=== PATIENT | female | born 1940 | race Caucasian/White ===

== ENCOUNTER 2018-06-21 13:19 | Emergency (ER) | payer MEDICARE ==
[~2018-06-21] VITALS: Ht 162.6 cm; Wt 59.0 kg
[2018-06-21] MEDS ORDERED: LEVO75TA6 (13:37)
[2018-06-21] MEDS ORDERED: FAMO40TA6 (13:37)
--- NOTE | 2018-06-21 14:35 | Diagnostic Imaging Report ---
INDICATION: Fall with left elbow pain. TIME OF EXAM: 2:26 PM TECHNIQUE: 3 views of the left elbow were obtained. FINDINGS: Alignment is normal. The anterior fat pad is prominent on the lateral view. This does raise the question of an occult fracture. Dedicated radial head views would be useful for further evaluation. No definite fracture is seen. IMPRESSION: There is a prominent anterior fat pad suggestive of elbow joint effusion. This can be seen with occult fracture. Dedicated radial head views would be useful for further evaluation. The patient returned and radial head views were obtained. Radiocapitellar alignment is normal. Radial head and neck appear to be intact. No definite fracture is identified. IMPRESSION: No definite fracture is identified although the anterior fat pad remains prominent suggestive of an elbow joint effusion. Again, occult fracture cannot be entirely excluded. If symptoms persist, consideration could be given to performance of a CT through the left elbow. Dictated by: Dictated on workstation # [id number]
--- NOTE | 2018-06-21 15:14 | Diagnostic Imaging Report ---
PROCEDURE: CT head and CT cervical spine without contrast. TECHNIQUE: Multiple contiguous axial images were obtained through the brain and cervical spine without the use of intravenous contrast. Sagittal and coronal reformations through the cervical spine were then performed. INDICATION: Follow up head and neck pain. COMPARISON: No prior studies are available for comparison. CT HEAD: Ventricles and sulci are within normal limits. No sulcal effacement, midline shift or hemorrhage is detected. Cisterns are patent. Visualized paranasal sinuses are clear. IMPRESSION: No acute intracranial process is detected. CT CERVICAL SPINE: Curvature and alignment of the cervical spine is normal. There is multilevel degenerative disc and facet disease with variable disc space narrowing and marginal spurring. Prevertebral tissues are normal. No fractures are seen. The odontoid appears intact. IMPRESSION: Cervical spondylosis. No acute bony abnormality is detected. Dictated by: Dictated on workstation # [id number]
--- NOTE | 2018-06-21 16:36 | NUR ---
PONCHO IN TALKING TO PT AT THIS TIME.
--- NOTE | 2018-06-21 16:39 | ED Trauma-Multisystem ---
General Chief Complaint: Trauma-Non Activation Stated Complaint: FALL; HEAD & LT ELBOW INJURY Nursing Triage Note: ARRIVED VIA AMB TO TRIAGE. STATES SHE FELL AT [facility]X 1130 HITTING THE BACK OF HER HEAD AND LEFT ELBOW. DENIES LOC OR NECK PAIN. STATES SHE LAID DOWN THEN FELT LIGHT HEADED. Source of Information: Patient Exam Limitations: No Limitations History of Present Illness Date Seen by Provider: Jun 21, 2018 Time Seen by Provider: 14:00 Allergies and Home Medications Allergies Coded Allergies: No Known Drug Allergies (Unverified , 06/21/18) Past Bunrunm-Mylduu-Fnhoay Hx Patient Social History Alcohol Use: Denies Use Recreational Drug Use: No Smoking Status: Never a Smoker Recent Foreign Travel: No Contact w/Someone Who Travel: No Recent Infectious Disease Expo: No Recent Hopitalizations: No Past Medical History Surgeries: Yes 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, Orthopedic Respiratory: No Cardiac: No Neurological: No Genitourinary: No Gastrointestinal: No Musculoskeletal: No Endocrine: Yes (THYROID ISSUES) HEENT: No Cancer: Yes (LYMPHOMA) Integumentary: No Physical Exam Vital Signs Vital Signs - First Documented 06/21/18 13:31 Temp 96.3 Pulse 77 Resp 16 B/P (MAP) 149/78 (101) Pulse Ox 96 O2 Delivery Room Air Height, Weight, BMI Height: 5'4.00" Weight: 130lbs. oz. 58.337077fp; BMI Method:Stated Progress/Results/Core Measures Results/Orders My Orders Orders - PONCHO CABELLO Elbow, Left, 3 Views (06/21/18 14:13) Ct Head/Cervical Spine Wo (06/21/18 14:13) Vital Signs/I&O 06/21/18 13:31 Temp 96.3 Pulse 77 Resp 16 B/P (MAP) 149/78 (101) Pulse Ox 96 O2 Delivery Room Air Blood Pressure Mean: 101 Departure Impression Primary Impression: Fall due to ice or snow Additional Impressions: Contusion Minor head injury Disposition: 01 HOME, SELF-CARE Condition: Stable/Unchanged Departure-Patient Inst. Decision time for Depature: 16:38 Referrals: KARLA MICHELLE MD (PCP/Family) Primary Care Physician Patient Instructions: Contusion (DC) Add. Discharge Instructions: You may use ibuprofen and Tylenol as directed by the bottle for pain relief. Ice to the sore areas at 20 minute intervals. Follow-up with your primary care provider as needed. If your elbow should continue to give you trouble and be painful follow-up with an orthopedic surgeon or your primary care provider for further imaging like we discussed. Return back to the emergency room for worsening symptoms or concerns as needed. All discharge instructions reviewed with patient and/or family. Voiced understanding. PONCHO CABELLO Jun 21, 2018 16:39
[2018-06-21 16:47] VITALS: BP 149/78
== END 2018-06-21 16:47 | disposition home or self-care (01) ==
LOC: EDUNIT# 13:19 → ER 13:21
DX: S09.90XA Unspecified injury of head, initial encounter (principal); S00.83XA Contusion of other part of head, initial encounter; Z90.710 Acquired absence of both cervix and uterus; Z98.890 Other specified postprocedural states; Z85.72 Personal history of non-Hodgkin lymphomas; W00.9XXA Unspecified fall due to ice and snow, initial encounter
CPT/HCPCS: 70450; 72125; 73080

== ENCOUNTER → 2018-07-17 | Outpatient (CLI) | payer MEDICARE ==
[~2018-07-17] MED LIST: FAMO40TA6; LEVO75TA6
--- NOTE | 2018-07-17 12:43 | Diagnostic Imaging Report ---
INDICATION: Fall. Low back pain. COMPARISON: 07/20/2009. FINDINGS: Frontal and lateral radiographic views of lumbar spine were obtained and again demonstrate mild dextroscoliotic deformity epicentered at the L2 level. AP static alignment is maintained. There is no significant anterolisthesis or retrolisthesis. There is no evidence of jumped facets. Vertebral body heights appear maintained. There is no evidence of acute fracture. Mild multilevel degenerative changes are noted. Surrounding soft tissue structures are within normal limits. IMPRESSION: 1. No acute fracture or dislocation of the lumbar spine. 2. Redemonstration of mild dextroscoliotic deformity with multilevel degenerative changes. Dictated by: Dictated on workstation # [id number]
--- NOTE | 2018-07-17 13:29 | Diagnostic Imaging Report ---
INDICATION: Recent fall. Pelvic pain. COMPARISON: None. FINDINGS: Three radiographic views of the sacroiliac joints were obtained. The SI joints are symmetric. There is no conspicuous deformity of the superior cortex of the sacral ala. No other acute appearing osseous abnormality is identified. Degenerative changes in the lower lumbar spine are noted. No unexpected radiopaque foreign bodies are seen. IMPRESSION: Unremarkable radiographic exam of the bilateral SI joints. Dictated by: Dictated on workstation # [id number]
== END ==
LOC: RAD 10:13
PROVIDERS: ATTEND Family Medicine
DX: M47.816 Spondylosis without myelopathy or radiculopathy, lumbar region (principal); M41.86 Other forms of scoliosis, lumbar region; M53.3 Sacrococcygeal disorders, not elsewhere classified; R10.2 Pelvic and perineal pain; W19.XXXA Unspecified fall, initial encounter
CPT/HCPCS: 72100; 72202

== ENCOUNTER 2018-09-16 13:21 | Outpatient (RCR) | payer MEDICARE | END 2018-09-24 09:50 | disposition home or self-care (01) | PROVIDERS: ATTEND Family Medicine | DX: M51.36 Other intervertebral disc degeneration, lumbar region (principal) ==

== ENCOUNTER 2018-10-05 09:30 | Emergency (ER) | payer MEDICARE | END 2018-10-05 10:50 | disposition home or self-care (01) | LOC: ER 09:30 ==

== ENCOUNTER 2020-11-04 08:13 | Outpatient (CLI) | payer MEDICARE ==
[~2020-11-04] VITALS: Ht 162.6 cm; Wt 54.5 kg
[2020-11-04] MEDS ORDERED: CALC600T91 PO (08:34)
== END 2020-11-04 13:42 | disposition home or self-care (01) ==
LOC: PREOP 08:13
PROVIDERS: ATTEND Surgery
DX: Z01.818 Encounter for other preprocedural examination (principal)

== ENCOUNTER 2020-11-09 13:00 | Day surgery (SDC) | payer MEDICARE ==
[~2020-11-09] VITALS: Ht 163 cm; Wt 55.0 kg
[~2020-11-09 13:00] MED LIST changes: +CALC600T91 PO
[2020-11-09] MEDS ORDERED: LACTATED RINGERS 1,000 ML IV STA (13:02)
[2020-11-09] MEDS ORDERED: LACTATED RINGERS 1,000 ML IV ONE (13:04)
[2020-11-09 13:20] VITALS: BP 140/75
[2020-11-09] MEDS ORDERED: PROPOFOL INJECTION 50 ML IV ONE (14:30)
--- NOTE | 2020-11-09 14:32 | Progress Note-Pre Operative ---
Pre-Operative Progress Note H&P Reviewed The H&P was reviewed, patient examined and no changes noted. Date Seen by Provider: Nov 09, 2020 Time Seen by Provider: 14:31 Date H&P Reviewed: Nov 09, 2020 Time H&P Reviewed: 14:31 Pre-Operative Diagnosis: chronic diarrhea, occult + stool ERIC PENALOZA DO Nov 09, 2020 14:32
[2020-11-09 15:45] VITALS: BP 145/69
[2020-11-09 15:50] VITALS: BP_SYST 144; BP_SYST 155; BP_DIAS 69; BP_DIAS 74
--- NOTE | 2020-11-09 15:57 | Anesthesia-General Post-Op ---
MAC Patient Condition Mental Status/LOC: Same as Preop Cardiovascular: Satisfactory Nausea/Vomiting: Absent Respiratory: Satisfactory Pain: Controlled Complications: Absent Post Op Complications Complications None Follow Up Care/Instructions Patient Instructions None needed. Anesthesiology Discharge Order Discharge Order Patient is doing well, no complaints, stable vital signs, no apparent adverse anesthesia problems. No complications reported per nursing. SATISH CONNOR CRNA Nov 09, 2020 15:57
[2020-11-09 16:15] VITALS: BP 128/75
[2020-11-09 16:17] VITALS: BP 128/75
--- NOTE | 2020-11-09 18:29 | OPERATIVE REPORT ---
DATE OF SERVICE: 11/09/2020 PREOPERATIVE DIAGNOSES: Chronic diarrhea, occult positive stool. POSTOPERATIVE DIAGNOSES: Diverticulosis, cecal polyp and ascending colon polyp. PROCEDURE: Colonoscopy with hot biopsy polypectomy x2 and random cold biopsies. SURGEON: Eric Angeles DO ANESTHESIA: Per MDA. ESTIMATED BLOOD LOSS: None. COMPLICATIONS: None. INDICATIONS: The patient is a 80-year-old female with chronic diarrhea and occult positive stools. She understands risks and benefits of procedure and wished to proceed with procedure. Consent was signed in the chart. DESCRIPTION OF PROCEDURE: The patient was taken to the endoscopy suite, placed in left lateral recumbent position. Timeout was performed. Digital rectal exam was performed. There were no palpable polyps, masses or ulcerations. Scope was inserted in the rectum, advanced all the way to cecum with minimal difficulty. Polyp in the cecum was present. Hot biopsy polypectomy was performed. Scope was then slowly retracted back in the ascending colon, a small polyp was present, which hot biopsy polypectomy was performed. Scope was then continuously retracted back. No other polyps, masses or ulcerations within the remainder of the ascending, transverse, descending and sigmoid colon. As scope was being retracted, a few random cold biopsies were obtained. Once in the rectum, scope was retroflexed noting no other pathology. Scope was returned to its normal position, slowly withdrawn until completely removed. The patient tolerated procedure well without any complications. She was taken to recovery room in stable condition. RECOMMENDATIONS: The patient will follow up in the office in a couple of weeks to discuss pathology and further recommendations. Job ID: [id number] DocumentID: [id number] Dictated Date: 11/09/2020 16:46:19 Manager Infrastructure Date: 11/09/2020 18:28:32 Dictated By: ERIC ANGELES DO
== END 2020-11-09 16:22 | disposition home or self-care (01) ==
LOC: ENDO 13:00
PROVIDERS: ATTEND Surgery
DX: D12.2 Benign neoplasm of ascending colon (principal); K57.30 Diverticulosis of large intestine without perforation or abscess without bleeding; K21.9 Gastro-esophageal reflux disease without esophagitis; Z79.2 Long term (current) use of antibiotics; E03.9 Hypothyroidism, unspecified; Z80.1 Family history of malignant neoplasm of trachea, bronchus and lung; Z79.899 Other long term (current) drug therapy; Z79.890 Hormone replacement therapy; Z85.72 Personal history of non-Hodgkin lymphomas

== ENCOUNTER → 2020-12-31 | Outpatient (CLI) | payer MEDICARE ==
--- NOTE | 2020-12-31 09:14 | Diagnostic Imaging Report ---
PROCEDURE: US Gallbladder. TECHNIQUE: Multiple real-time grayscale images were obtained over the right upper quadrant in various projections. INDICATION: Right upper quadrant abdominal pain. Diarrhea. COMPARISON: None FINDINGS: Liver is normal in size, shape, and echogenicity. There is no focal mass. There is no sonographic evidence of intra or extrahepatic biliary ductal dilatation. Common bile duct is within normal limits 3 mm in diameter. Gallbladder is visualized. There is no cholelithiasis, gallbladder wall thickening, nor pericholecystic free fluid. Visualized portions of the head and proximal body of pancreas are unremarkable. Distal body and tail are not well visualized secondary to overlying bowel gas. Visualized portions of abdominal aorta and IVC are unremarkable as well. There is no ascites. Right kidney has normal appearance and measures 9.8 cm in length. There is no evidence of hydronephrosis, calculus, nor mass. IMPRESSION: 1. Unremarkable right upper quadrant abdominal sonogram. No sonographic evidence of acute cholecystitis. Dictated by: Dictated on workstation # [id number]
== END ==
LOC: RAD 07:00
PROVIDERS: ATTEND Family Medicine
DX: R10.11 Right upper quadrant pain (principal); R19.7 Diarrhea, unspecified
CPT/HCPCS: 76705

== ENCOUNTER 2021-01-03 12:00 | Outpatient (RCR) | payer MEDICARE ==
[2021-02-14] MEDS ORDERED: LEVO75CA5 PO (10:20)
[2021-02-14] MEDS ORDERED: CHOL4PAC2 PO (10:20)
[2021-02-14] MEDS ORDERED: FAMO40TA6 PO ×2 (10:20→10:21)
[2021-02-14] MEDS ORDERED: TR1C15 TP (10:21)
[2021-02-14] MEDS ORDERED: ASPI-999 PO (11:12)
[2021-02-14] MEDS ORDERED: MULT-1136 PO (11:12)
[2021-02-17] MEDS ORDERED: LOPE-175 PO (08:33)
[2021-02-17] MEDS ORDERED: DOCU-143 PO (10:07)
[2021-02-17] MEDS ORDERED: ACHD5005 PO (10:07)
== END 2021-03-30 | disposition home or self-care (01) ==
LOC: LAB 12:00
PROVIDERS: ATTEND Surgery
DX: R19.7 Diarrhea, unspecified (principal)
CPT/HCPCS: 87015; 87045; 87046; 87324; 87328; 87329; 87449; 87899

== ENCOUNTER → 2021-01-27 | Outpatient (CLI) | payer MEDICARE ==
[~2021-01-27] MED LIST changes: +CATHETER FLUSH 10 ML SYR IV PRN
--- NOTE | 2021-02-01 08:12 | Diagnostic Imaging Report ---
Reason for exam: Right upper quadrant abdominal pain. Comparison: 12/31/2020. Procedure: The patient was administered 4.25 millicuries of technetium 99m mebrofenin . 8 ounces of Ensure was ingested at 45 minutes. A nuclear medicine hepatobiliary scan with ejection fraction was performed. Findings: There is prompt uptake and excretion of radiotracer by the liver. Activity is visible in the gallbladder by 20 minutes and the small bowel by 65 minutes. Ejection fraction of the gallbladder is calculated at 14.1% (normal >35%). The gallbladder visibly empties on the scans following ingestion of Ensure. Impression: 1. Findings suggestive of gallbladder dyskinesia with lower than expected ejection fraction calculated at 14.1%. Dictated by: Dictated on workstation # [id number]
== END ==
LOC: CARD 10:00
PROVIDERS: ATTEND Surgery
DX: R10.13 Epigastric pain (principal)
CPT/HCPCS: 78227; A9537

== ENCOUNTER 2021-02-14 05:36 | Outpatient (CLI) | payer MEDICARE ==
[~2021-02-14] VITALS: Ht 162.6 cm; Wt 49.0 kg
[~2021-02-14 05:36] MED LIST changes: -CATHETER FLUSH 10 ML SYR IV PRN
[2021-02-14] MEDS ORDERED: FAMO40TA6 PO ×2 (10:20→10:21)
[2021-02-14] MEDS ORDERED: CHOL4PAC2 PO (10:20)
[2021-02-14] MEDS ORDERED: LEVO75CA5 PO (10:20)
[2021-02-14] MEDS ORDERED: TR1C15 TP (10:21)
[2021-02-14] MEDS ORDERED: MULT-1136 PO (11:12)
[2021-02-14] MEDS ORDERED: ASPI-999 PO (11:12)
== END 2021-02-14 11:30 | disposition home or self-care (01) ==
LOC: PREOP 05:36
PROVIDERS: ATTEND Surgery
DX: Z01.818 Encounter for other preprocedural examination (principal)

== ENCOUNTER 2021-02-17 08:08 | Day surgery (SDC) | payer MEDICARE ==
[~2021-02-17] VITALS: Ht 162.6 cm; Wt 49.0 kg
[2021-02-17] VITALS (11 sets, daily range): BP systolic 128–149; BP diastolic 60–82
[~2021-02-17 08:08] MED LIST changes: +ASPI-999 PO; +CHOL4PAC2 PO; +FAMO40TA6 PO; +LEVO75CA5 PO; +MULT-1136 PO; +TR1C15 TP
--- OUTSIDE RECORDS SUMMARY | 2021-02-17 08:11 | XMS REPORT | CCD ---
Author Author Roshni Mullen D.O. Organization [facility] Address [address] [place] [address] Phone Care Team Providers Care Brass Polisher Name Role Phone PP Unavailable CCM Unavailable Summary Purpose Interface Exchange Insurance Providers Payer name Policy type / Coverage type Covered alliance party ID Effective Begin Date Effective End Date WPS MEDICARE PART B [facility] Cross/Blue Shield [id number] 2020 [id number] Unknown BLUE MEDICARE Blue Cross/Blue Shield [id number] Unkn own Family history Mother Diagnosis Age At Onset Heart disease Unknown Cerebrovascular disease Unknown Son Diagnosis Age At Onset Seizures Unknown Lung Cancer Unknown Brother Diagnosis Age At Onset Heart disease Unknown Father Diagnosis Age At Onset Lung Cancer Unknown Social History Social History Element Codes Description Effective Dates Marital status Unknown 11/25/2020 Number of children Unknown 5 11/25/2020 Employment Unknown Retired 11/25/[address]: 103438751 Has never smoked or chewed tobacco 11/25/[address]: 982739 Currently drinks alcohol 11/25 Has the patient ever used illegal drugs? 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 ICD-9: 202.80 11/25/2020 Active RUQ pain ICD-10: R10.11 ICD-9: 789.01 12/23/2020 Active Unintended weight loss ICD-10: R63.4 ICD-9: 783.21 12/23/2020 Active Acute on chronic anemia ICD-10: D64.9 ICD-9: 285.9 12/01/2020 Active Superficial thrombophlebitis of left leg ICD-10: I80.0 2 ICD-9: 451.0 11/25/2020 Active Hypothyroidism ICD-10: E03.9 ICD-9: 244.9 11/25/2020 Active Medications Medication Codes Instructions Start Date Stop Date Status Fill Instructions multivitamin tablet RxNorm: Take 1 Tablet(s) Oral QD 11/25/2020 No Stop Date Active levothyroxine 75 mcg tablet RxNorm: 449784 Take 1 Tablet(s) Oral QD 11/25/2020 02/22/2021 Active famotidine 40 mg tablet RxNorm: 748380 Take 1 Tablet(s) Oral QD No Stop Date Active Medication Administered No Medication Administered data Immunizations No Immunization data Results No Results data Procedures No Procedures data Vital Signs Date Vital 12/23/2020 Blood Pressure 1: 122/63 Code: 8480-6 Heart Rate 1: 73 bpm Respiratory Rate: 15 bpm SpO2: 97% Temperature: 36.2 (C) / 97.1 (F) We ight: 108 lbs Code: 51800-3 12/01/2020 Blood Pressure 1: 114/70 Code: 8480-6 Heart Rate 1: 82 bpm Respiratory Rate: 20 bpm SpO2: 98% Temperature: 36.8 (C) / 98.3 (F) 11/25/2020 Blood Pressure 1: 132/70 Code: 8480-6 BMI: 20.5 Code: 91013-0 Heart Rate 1: 72 bpm Height: 5'2" Code: 8302-2 Respiratory Rate: 20 bpm SpO2: 98% Temperature: 36.6 (C) / 97.9 (F) Weight: 114 lbs Code: 83027-8 Functional Status No Functional Status data Reason For Visit Reason For Visit Effective Dates Notes diarrhea 12/23/2020 follow up 12/01/2020 ~generic 11/25/2020 New Patient, history of lymphoma---negative CT scans recently. Currently seeing Dr Meyers at [facility] Encounters Encounter Performer Location Codes Date () OFFICE/OUTPATIENT VISIT EST Diagnosis: Diarrhea[ICD10: R19.7] Diagnosis: Lymphoma in remission[ICD10: C85.90] Diagnosis: RUQ pain[ICD10: R10.11] Diagnosis: Unintended weight loss[ICD10: R63.4] Dodie Aguilar DOMINIC MULLEN [employer] CPT-4: 04882 12/23/2020 ([id number]) OFFICE/OUTPATIENT VISIT EST Diagnosis: Superficial thrombophlebitis of left leg[ICD10: I80.02] Diagnosis: Diarrhea[ICD10: R19.7] Diagnosis: Acute on chronic anemia[ICD10: D64.9] Bina [employer] CPT-4: 69207 12/01/2020 ([id number]) OFFICE/OUTPATIENT VISIT NEW Diagnosis: Lymphoma in remission[ICD10: C85.90] Diagnosis: Hypothyroidism[ICD10: E03.9] Diagnosis: Diarrhea[ICD10: R19.7] Diagnosis: Superficial thrombophlebitis of left leg[ICD10: I80.02] [facility] [employer] CPT-4: 13257 11/25/2020 Plan of Care Planned Activity Notes Codes Status Date Visit Diagnosis Plan: Diarrhea Discussion: Has had rec ent lab work- will add on CRP and celiac panel. Will get US of liver/gallbladder d/t diarrhea and RUQ pain. Has f/u with Dr. Angeles next week, but requests referral to GI. Will send referral to Dr. Zafar. ICD-9 : 787.91 ICD-10 : R19.7 12/23/2020 App[facility]ment: Dodie Aguilar [facility] [phone] [id number] [facility] 12/23/2020 Patient Education: Patient Medication Summary Completed 12/23/2020 Visit Diagnosis Plan: Acute on chronic anemia Discussi on: Has meeting with oncology next week ICD-9 : 285.9 ICD-10 : D64.9 12/01/2020 Visit Diagnosis Plan: Diarrhea Discussion: Sees Dr. Velazquez today to go over colonoscopy results ICD-9 : 787.91 ICD-10 : R19.7 12/01/2020 Visit Diagnosis Plan: Superficial thrombophlebitis of left leg Discussion: Low dose xarelto for another week then go to aspirin 81mg daily and use compression socks ICD-9 : 451.0 ICD-10 : I80.02 12/01/2020 [facility]ment: Bina [facility]ullen [facility] [phone] [facility] [facility] FOLLOW UP 12/01/2020 Visit Diagnosis Plan: Diarrhea Discussion: Sees Dr. Velazquez next week to go over her colonoscopy results Add metamucil has helped ICD-9 : 787.91 ICD-10 : R19.7 11/25/2020 Visit Diagnosis Plan: Superficial thrombophlebitis of left leg Discussion: Xarelto 2.5mg po q AM Recheck 1 week Notify if worsening and will get doppler Discussed wearing compression socks for long car trips in future ICD-9 : 451.0 ICD-10 : I80.02 11/25/2020 Visit Diagnosis Plan: Lymphoma in remission Discussion : Following with oncology in [place] ICD-9 : 202.80 ICD-10 : C85.90 11/25/2020 Visit Diagnosis Plan: Hypothyroidism Discussion: Updat e thyroid lab with next lab draw for oncology ICD-9 : 244.9 ICD-10 : E03.9 11/25/2020 [facility]ment: Bina Mullen [facility] [phone] [facility] [facility] NEW PATIENT 11/25/2020 Instructions No Instructions Medical Equipment No Medical Equipment data Health Concerns Section Health Concerns data not found Goals Section Goals data not found Interventions Section Interventions data not found Health Status Evaluations/Outcomes Section Health Status Evaluations/Outcomes data not found Advance Directives No Advance Directive data
--- OUTSIDE RECORDS SUMMARY | 2021-02-17 08:11 | XMS REPORT | CCD ---
Author Author Roshni Mullen D.O. Organization [facility] Address [address] [place] [address] Phone Care Team Providers Care American History Professor Name Role Phone PP Unavailable CCM Unavailable Summary Purpose Interface Exchange Insurance Providers Payer name Policy type / Coverage type Covered alliance party ID Effective Begin Date Effective End Date WPS MEDICARE PART B [facility] Cross/Blue Shield [id number] 2020 [id number] Unknown BLUE MEDICARE Blue Cross/Blue Shield [id number] Unkn own Family history Mother Diagnosis Age [...] Unknown Retired 11/25/[address]: 102010982 Has never smoked or chewed tobacco 11/25/[address]: 148049 Currently drinks alcohol 11/25 Has the patient [...] Date Active levothyroxine 75 mcg tablet RxNorm: 692200 Take 1 Tablet(s) Oral QD 11/25/2020 02/22/2021 Active famotidine 40 mg tablet RxNorm: 067116 Take 1 Tablet(s) Oral QD No Stop Date Active Medication Administered No Medication Administered data Immunizations No Immunization data Results No Results data Procedures No Procedures data Vital Signs Date Vital 12/23/2020 Blood Pressure 1: 122/63 Code: 8480-6 Heart Rate 1: 73 bpm Respiratory Rate: 15 bpm SpO2: 97% Temperature: 36.2 (C) / 97.1 (F) We ight: 108 lbs Code: 97311-3 12/01/2020 Blood Pressure 1: 114/70 Code: 8480-6 Heart Rate 1: 82 bpm Respiratory Rate: 20 bpm SpO2: 98% Temperature: 36.8 (C) / 98.3 (F) 11/25/2020 Blood Pressure 1: 132/70 Code: 8480-6 BMI: 20.5 Code: 08431-4 Heart Rate 1: 72 bpm Height: 5'2" Code: 8302-2 Respiratory Rate: 20 bpm SpO2: 98% Temperature: 36.6 (C) / 97.9 (F) Weight: 114 lbs Code: 28058-1 Functional Status No Functional Status data Reason For Visit Reason For Visit Effective Dates Notes diarrhea 12/23/2020 follow up 12/01/2020 ~generic 11/25/2020 New Patient, history of lymphoma---negative CT scans recently. Currently seeing Dr Meyers at [facility] Encounters Encounter Performer Location Codes Date () OFFICE/OUTPATIENT VISIT EST Diagnosis: Diarrhea[ICD10: R19.7] Diagnosis: Lymphoma in remission[ICD10: C85.90] Diagnosis: RUQ pain[ICD10: R10.11] Diagnosis: Unintended weight loss[ICD10: R63.4] Dodie Aguilar DOMINIC MULLEN [employer] CPT-4: 13196 12/23/2020 ([id number]) OFFICE/OUTPATIENT VISIT EST Diagnosis: Superficial thrombophlebitis of left leg[ICD10: I80.02] Diagnosis: Diarrhea[ICD10: R19.7] Diagnosis: Acute on chronic anemia[ICD10: D64.9] Bina [employer] CPT-4: 36896 12/01/2020 ([id number]) OFFICE/OUTPATIENT VISIT NEW Diagnosis: Lymphoma in remission[ICD10: C85.90] Diagnosis: Hypothyroidism[ICD10: E03.9] Diagnosis: Diarrhea[ICD10: R19.7] Diagnosis: Superficial thrombophlebitis of left leg[ICD10: I80.02] Bina [employer] CPT-4: 56234 11/25/2020 Plan of Care Planned Activity Notes [...] 12/23/2020 Appointment: Dodie Aguilar [facility]Ptel: [phone] [id number] [facility] 12/23/2020 Patient Education: Patient Medication [...] I80.02 12/01/2020 [facility]ointment: Bina Mullen [facility] [phone] [facility] [facility] FOLLOW UP 12/01/2020 Visit Diagnosis [...] remission Discussion : Following with oncology in [place] ICD-9 : 202.80 ICD-10 : C85.90 11/25/2020 Visit Diagnosis Plan: Hypothyroidism Discussion: Updat e thyroid lab with next lab draw for oncology ICD-9 : 244.9 ICD-10 : E03.9 11/25/2020 Appointment: Bina Mullen [facility] [phone] [facility] [facility] NEW PATIENT 11/25/2020 Instructions No Instructions Medical Equipment No Medical Equipment data Health Concerns Section Health Concerns data not found Goals Section Goals data not found Interventions Section Interventions data not found Health Status Evaluations/Outcomes Section Health Status Evaluations/Outcomes data not found Advance Directives No Advance Directive data
--- OUTSIDE RECORDS SUMMARY | 2021-02-17 08:11 | XMS REPORT | CCD ---
Author Author Roshni Mullen D.O. 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 Name Role Phone PP Unavailable CCM Unavailable Summary Purpose Interface Exchange Insurance Providers Payer name Policy type / Coverage type Covered alliance party ID Effective Begin Date Effective End Date WPS MEDICARE PART B [place] Blue Cross/Blue Shield [id number] 2020 [id number] Unknown BLUE MEDICARE Blue Cross/Blue Shield [id number] Unkn own Family history Mother Diagnosis Age [...] Unknown Retired 11/25/[address]: 122383649 Has never smoked or chewed tobacco 11/25/[address]: 848892 Currently drinks alcohol 11/25 Has the patient [...] Date Active levothyroxine 75 mcg tablet RxNorm: 990787 Take 1 Tablet(s) Oral QD 11/25/2020 02/22/2021 Active famotidine 40 mg tablet RxNorm: 314450 Take 1 Tablet(s) Oral QD No Stop Date Active Medication Administered No Medication Administered data Immunizations No Immunization data Results No Results data Procedures No Procedures data Vital Signs Date Vital 12/23/2020 Blood Pressure 1: 122/63 Code: 8480-6 Heart Rate 1: 73 bpm Respiratory Rate: 15 bpm SpO2: 97% Temperature: 36.2 (C) / 97.1 (F) We ight: 108 lbs Code: 66267-6 12/01/2020 Blood Pressure 1: 114/70 Code: 8480-6 Heart Rate 1: 82 bpm Respiratory Rate: 20 bpm SpO2: 98% Temperature: 36.8 (C) / 98.3 (F) 11/25/2020 Blood Pressure 1: 132/70 Code: 8480-6 BMI: 20.5 Code: 44445-9 Heart Rate 1: 72 bpm Height: 5'2" Code: 8302-2 Respiratory Rate: 20 bpm SpO2: 98% Temperature: 36.6 (C) / 97.9 (F) Weight: 114 lbs Code: 94479-2 Functional Status No Functional Status data Reason For Visit Reason For Visit Effective Dates Notes diarrhea 12/23/2020 follow up 12/01/2020 ~generic 11/25/2020 New Patient, history of lymphoma---negative CT scans recently. Currently seeing Dr Meyers at 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] Diagnosis: RUQ pain[ICD10: R10.11] Diagnosis: Unintended weight loss[ICD10: R63.4] Dodie Aguilar DOMINIC MULLEN YaKlass CPT-4: 54027 12/23/2020 ([id number]) OFFICE/OUTPATIENT VISIT EST Diagnosis: Superficial thrombophlebitis of left leg[ICD10: I80.02] Diagnosis: Diarrhea[ICD10: R19.7] Diagnosis: Acute on chronic anemia[ICD10: D64.9] Bina MULLEN YaKlass CPT-4: 36892 12/01/2020 ([id number]) OFFICE/OUTPATIENT VISIT NEW Diagnosis: Lymphoma in remission[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 Will get US of liver/gallbladder d/t diarrhea and RUQ pain. Has f/u with Dr. Angeles next week, but requests referral to GI. Will send referral to Dr. Zafar. ICD-9 : 787.91 ICD-10 : R19.7 12/23/2020 [facility]: Dodie [facility] [phone] [facility] [facility] 12/23/2020 Patient Education: Patient Medication [...] I80.02 12/01/2020 [facility] [phone] [facility] [facility] 12/01/2020 Visit Diagnosis Plan: [...] remission Discussion : Following with oncology in [place] ICD-9 : 202.80 ICD-10 : C85.90 11/25/2020 Visit Diagnosis Plan: Hypothyroidism Discussion: Updat e thyroid lab with next lab draw for oncology ICD-9 : 244.9 ICD-10 : E03.9 11/25/2020 Appointment: [facility]ina [facility]ullen [facility] [phone] [facility] [facility] NEW PATIENT 11/25/2020 Referral: Tony Zafar WPtel: [phone] [facility] [address] [id number] US Referral Appointment Requested Instructions No Instructions Medical Equipment No Medical Equipment data Health Concerns Section Health Concerns data not found Goals Section Goals data not found Interventions Section Interventions data not found Health Status Evaluations/Outcomes Section Health Status Evaluations/Outcomes data not found Advance Directives No Advance Directive data
[2021-02-17] MEDS ORDERED: ceFAZolin INJECTION 1,000 MG in WATER (STERILE) FOR INJECTION 10 ML IV ONE (08:15)
[2021-02-17] MEDS ORDERED: LACTATED RINGERS 1,000 ML IV PRN (08:15)
[2021-02-17] MEDS ORDERED: LIDOCAINE/EPI 1%-1:100,000 (XYLOCAINE) 20ML ONE (08:24)
[2021-02-17] MEDS ORDERED: LOPE-175 PO (08:33)
[2021-02-17] MEDS ORDERED: ROCURONIUM 10 MG/ML 5 ML SYRINGE IV ONE (08:43)
[2021-02-17] MEDS ORDERED: proPOfol 200 MG/20 ML (DIPRIVAN) VIAL IV ONE (08:43)
[2021-02-17] MEDS ORDERED: fentaNYL INJ 100 MCG/2 ML AMP ONE (08:43)
[2021-02-17] MEDS ORDERED: ONDANSETRON 4 MG/2 ML (SDV) Z0FRAN ONE (08:43)
[2021-02-17] MEDS ORDERED: SEVOFLURANE (ULTANE) 15 ML INHAL SOLN ONE ×2 (08:43→09:40)
[2021-02-17] MEDS ORDERED: LIDOCAINE PF 2% 5 ML (XYLOCAINE) VIAL ONE (08:43)
--- NOTE | 2021-02-17 08:53 | Progress Note-Pre Operative ---
Pre-Operative Progress Note H&P Reviewed The H&P was reviewed, patient examined and no changes noted. Date Seen by Provider: Feb 17, 2021 Time Seen by Provider: 08:53 Date H&P Reviewed: Feb 17, 2021 Time H&P Reviewed: 08:53 Pre-Operative Diagnosis: biliary dyskinesia ERIC PENALOZA DO Feb 17, 2021 08:53
[2021-02-17] MEDS ORDERED: PHENYLEPHRINE 100 MCG/ML 10 ML (ANESTHESIA) SYR ONE (09:07)
[2021-02-17] MEDS ORDERED: GLYCOPYRROLATE 0.2 MG/ML (ROBINUL) 2 ML VIAL ONE (09:39)
[2021-02-17] MEDS ORDERED: NEOSTIGMINE 3 MG/3 ML VIAL ONE (09:39)
[2021-02-17] MEDS ORDERED: KETOROLAC 30 MG/ML VIAL ONE (09:46)
[2021-02-17] MEDS ORDERED: HYDROmorphone 2 MG/ML VIAL (DILAUDID) IV ONE (10:00)
[2021-02-17] MEDS ORDERED: ONDANSETRON 4 MG/2 ML (SDV) Z0FRAN IVP PRN (10:00)
--- NOTE | 2021-02-17 10:06 | Progress Note-Post Operative ---
Post-Operative Progess Note Surgeon (s)/[employer] Consultant (s) Surgeon ERIC PENALOZA DO [employer] Consultant: Dr. Chong to assist in retraction dissection and closure. Pre-Operative Diagnosis biliary dyskinesia Post-Operative Diagnosis biliary dyskinesia Procedure & Operative Findings Date of Procedure 02/17/21 Procedure Performed/Findings PROCEDURE: Laparoscopic cholecystectomy with intraoperative cholangiogram. COMPLICATIONS: None. PROCEDURE: The patient was taken to the operating suite and was prepped and draped in sterile fashion. A surgical pause was performed. Just inferior to the umbilicus, a 12 mm incision was made. Dissection was taken down to the fascia, which was then scored and grasped with a Erwin and the abdomen was then entered. A 0 Vicryl suture was placed in a hhfhvp-of-ejkxm fashion and a Ayon trocar was placed and secured. Pneumoperitoneum was achieved. A 5mm trochar place in the subxyphoid and 2 in the right upper quadrant. The gallbladder was then grasped and elevated. Gallbladder was distended and had multiple adhesions. Adhesions to the gallbladder were taken down with blunt and cautery dissection. The cystic duct, and cystic artery were then dissected out. Clip was placed on the distal portion of the cystic duct which was then partially transected. An arrow catheter was inserted into the duct. The cholangiogram was then performed. No filing defects and contrast made its way into the duodenum. Catheter removed. Clips were placed on proximal portion of the cystic duct and then the duct was then transected. Clips were placed along the proximal and distal portion of the cystic artery which was then transected. Hook cautery was used to dissect the gallbladder from the gallbladder fossa achieving hemostasis. The gallbladder was placed in an Endobag and removed through the 12 mm trocar site. The abdomen was then reinspected. Copious amounts of irrigation were used to irrigate the abdomen and there were no signs of active bleeding. Hemostasis had been achieved. The 12 mm fascial defect was then closed with 0 Vicryl suture that had been placed in a htaidb-ta-dxwis fashion. The abdomen was then desufflated, the trocars were removed. The abdomen was then washed and dried. The skin was then closed using 4-0 Monocryl in a subcuticular fashion. The abdomen was washed and dried and Skin Affix was place over incisions. Patient tolerated the procedure well without any complications and was taken to the recovery room in stable condition. Anesthesia Type general Estimated Blood Loss Estimated blood loss (mL): min Specimens/Packing Specimens Removed gallbladder ERIC PENALOZA DO Feb 17, 2021 10:06
[2021-02-17] MEDS ORDERED: DOCU-143 PO (10:07)
[2021-02-17] MEDS ORDERED: ACHD5005 PO (10:07)
--- NOTE | 2021-02-17 10:08 | Discharge Inst-Simple/Standard ---
Discharge Inst-Standard Discharge Medications New, Converted or Re-Newed RX: Transmitted to Pharmacy Patient Instructions/Follow Up Plan of Care/Instructions/FU: 2 weeks silvana Activity as Tolerated: No Discharge Diet: Regular Diet Other Inst to Patient Follow up Appt: Make appointment for 2 weeks. Instructions: No lifting greater than 10 pounds. No strenuous activity. May shower in 24 hours, no tub bath or soaking. Use incentive spirometer at home as directed. No Smoking Skin/Wound Care: You have special glue over incision, it will fall off on it's own. Symptoms to Report: Appetite Changes, Extremity Discoloration, Numbness/Tingling, Swelling Increased, Bleeding Excessive, Eyesight Changes, Pain Increased, Urine Color Change, Constipation(Persistent), Fever over 101 degree F, Pain/Pressure in chest, Urinating Difficulty, Cough Up/Vomit Blood, Heart Beat Irreg/Pounding, Pain/Pressure in jaw, Vaginal Bleeding Increase, Cramps in feet or legs, Lightheadedness, Pain/Pressure in shoulder, Diarrhea(Persistent), Memory Changes Suddenly, Questions/Concerns, Weight gain consecutive days, Dizziness/Fainting, Nausea/Vomiting, Shortness of Breath, Weight gain over 2 pounds. If eyes or skin turn yellow notify physician. If questions or concerns contact your physician Or seek help at emergency department. ERIC PENALOZA DO Feb 17, 2021 10:08
--- NOTE | 2021-02-17 10:11 | Diagnostic Imaging Report ---
INDICATION: Right upper quadrant abdominal pain with gallbladder dyskinesia. Undergoing cholecystectomy. FINDINGS: 2 intraoperative cholangiogram images along with a cine image are submitted. There is cannulation of the extra hepatic biliary tree. Images demonstrate contrast opacification of the biliary system. Biliary tree is not significantly dilated. There was are several small persistent filling defects in the common bile duct which are nonspecific. Fairly normal, free flow was present into the duodenum. IMPRESSION: Nondilated biliary tree. A few small filling defects are present, nonspecific. Fluoroscopic time: 8.5 seconds Dictated by: Dictated on workstation # [id number]
--- NOTE | 2021-02-17 14:46 | Anesthesia-General Post-Op ---
General Patient Condition Mental Status/LOC: Same as Preop Cardiovascular: Satisfactory Nausea/Vomiting: Absent Respiratory: Satisfactory Pain: Controlled Complications: Absent Post Op Complications Complications None Follow Up Care/Instructions Patient Instructions None needed. Anesthesia/Patient Condition Patient Condition Patient is doing well, no complaints, stable vital signs, no apparent adverse anesthesia problems. No complications reported per nursing. D/C home per [facility] Criteria: Yes VIVEK JOHNSON CRNA Feb 17, 2021 14:46
== END 2021-02-17 12:15 | disposition home or self-care (01) ==
LOC: SDC 08:08
PROVIDERS: ATTEND Surgery
DX: K81.1 Chronic cholecystitis (principal); K82.8 Other specified diseases of gallbladder; K21.9 Gastro-esophageal reflux disease without esophagitis; E07.9 Disorder of thyroid, unspecified; Z79.82 Long term (current) use of aspirin; Z79.890 Hormone replacement therapy; Z79.891 Long term (current) use of opiate analgesic
CPT/HCPCS: 76000; 87081

== ENCOUNTER → 2021-10-11 | Outpatient (RCR) | payer MEDICARE ==
[~2021-10-11] MED LIST changes: +ACHD5005 PO; +CHOL4PAC14 PO; -CHOL4PAC2 PO; +DOCU-143 PO; +LOPE-175 PO
== END | disposition home or self-care (01) ==
PROVIDERS: ATTEND Nurse Practitioner Family
DX: M54.16 Radiculopathy, lumbar region (principal)

== ENCOUNTER 2021-11-08 13:23 | Outpatient (RCR) | payer MEDICARE | END 2021-11-10 | disposition home or self-care (01) | PROVIDERS: ATTEND Nurse Practitioner Family | DX: M54.16 Radiculopathy, lumbar region (principal) ==

== ENCOUNTER 2021-11-24 11:15 | Outpatient (RCR) | payer MEDICARE ==
[~2021-11-24 11:15] MED LIST changes: -CHOL4PAC14 PO; +CHOL4POW4 PO
== END 2021-12-11 | disposition home or self-care (01) ==
PROVIDERS: ATTEND Nurse Practitioner Family
DX: M54.16 Radiculopathy, lumbar region (principal)

== ENCOUNTER 2022-07-03 04:56 | Emergency (ER) | payer MEDICARE ==
[~2022-07-03] VITALS: Ht 162.6 cm; Wt 49.0 kg
[2022-07-03] MEDS ORDERED: NS IV 500 ML 500 ML IV STA (05:25)
[2022-07-03] MEDS ORDERED: ONDANSETRON 4 MG/2 ML (SDV) Z0FRAN IVP ONE (05:30)
--- NOTE | 2022-07-03 05:31 | ED General ---
General Stated Complaint: CANCER Source of Information: Patient, Family (son) Exam Limitations: No Limitations History of Present Illness Date Seen by Provider: Jul 03, 2022 Time Seen by Provider: 05:14 Initial Comments Patient is an 81-year-old female who presents to the emergency department today with a chief complaint of severe nausea, vomiting and desiring end-of-life care. She has a history of lymphoma and has been fighting it since 2009, still taking chemotherapy last dose was about 2 weeks ago. She gets it every 2 weeks. Patient states over the course of the last several days she has decided that she wants to discontinue treatment for her lymphoma. She has stopped taking all of her prescription medications including nausea medicines and pain medicines. She states her back is her primary source of pain, she does occasionally have abdominal pain. She has had severe diarrhea in the last 24 hours as well. She is here because she states she did not want to at home with her son present. She would like hospice started. Her primary care doctor is Dr. BACK, her oncologist is Dr. Osborn. She is currently awake alert and oriented and appears to have capacity to make decisions for herself. Her son is present and and is agreeable with her decisions. Patient is desirous of a little medication for her nausea and a little IV fluid while we arrange for hospice nurse to come out and see her this afternoon. She has no preference currently for any particular hospice company. Timing/Duration: Other (2 to 3 days worsening) Severity: Severe Associated Systoms: Loss of Appetite, Malaise, Nausea/Vomiting, Weakness, Other (Low back pain) Allergies and Home Medications Allergies Coded Allergies: No Known Drug Allergies (Unverified , 06/21/18) Patient Home Medication List Home Medication List Reviewed: Yes Aspirin (Aspirin) 81 Mg Tab.chew, 81 MG PO DAILY, (Reported) Entered as Reported by: YANIQUE REECE on 02/14/21 1112 Cholestyramine (with Sugar) (Cholestyramine Packet) 4 Gm Powd.pack, 4 GM PO DAILY, (Reported) Entered as Reported by: YANIQUE REECE on 02/14/21 1020 Docusate Sodium (Colace) 100 Mg Capsule, 100 MG PO BID Prescribed by: ERIC PENALOZA on 02/17/21 1007 Hydrocodone/Acetaminophen (Hydrocodone-Acetamin 5-325 mg) 1 Each Tablet, 1 EACH PO Q4H PRN for PAIN-MODERATE (5-7) Prescribed by: ERIC PENALOZA on 02/17/21 1007 Levothyroxine Sodium (Levothyroxine) 75 Mcg Capsule, 75 MCG PO DAILY, (Reported) Entered as Reported by: YANIQUE REECE on 02/14/21 1020 Loperamide HCl (Imodium A-D) 2 Mg Capsule, 2 MG PO 5XD PRN for DIARRHEA, (Reported) Entered as Reported by: YANIQUE REECE on 02/17/21 0833 Multivitamin (Multivitamin) 1 Each Tablet, 1 EACH PO DAILY, (Reported) Entered as Reported by: YANIQUE REECE on 02/14/21 1112 Triamcinolone Acet (Triamcinolone Acetonide 0.1% Cream) 15 Gm Cr, 15 GM TP BID, (Reported) Entered as Reported by: YANIQUE REECE on 02/14/21 1021 Review of Systems Review of Systems Constitutional: see HPI, malaise, weakness EENTM: no symptoms reported Respiratory: no symptoms reported Cardiovascular: no symptoms reported Gastrointestinal: diarrhea, nausea, vomiting Genitourinary: no symptoms reported Musculoskeletal: back pain Skin: no symptoms reported Psychiatric/Neurological: Weakness All Other Systems Reviewed Negative Unless Noted: Yes Past Jwridhc-Afsxvy-Upfyfe Hx Immunizations Up To Date First/Initial COVID19 Vaccinat: MAY 2020 Second COVID19 Vaccination Nikhil: JUNE 2020 Seasonal Allergies Seasonal Allergies: No Past Medical History Surgeries: Yes (RIGHT ANKLE SURGERY, LEFT ARMPIT LYMPH NODE) Adenoidectomy, 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, Orthopedic, Tonsillectomy Respiratory: No Currently Using CPAP: No Currently Using BIPAP: No Cardiac: No Neurological: Yes (RIGHT LEG (FROM CANCER TREATMENTS)) Neuropathy 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: 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 Genitourinary: No Gastrointestinal: Yes Chronic Diarrhea Musculoskeletal: Yes Arthritis Endocrine: Yes Hypothyroidsim HEENT: Yes (WEARS GLASSES) Loss of Vision: Denies Hearing Impairment: Denies Cancer: Yes (NON-HODGKINS LYMPHOMA) Lymphoma What Type of Treatment Did You: Chemotherapy, Radiation Psychosocial: No Integumentary: No Blood Disorders: Yes (ANEMIA) Adverse Reaction/Blood Tranf: No (N/A) Physical Exam Vital Signs Vital Signs - First Documented 07/03/22 05:10 Pulse 94 Resp 16 B/P (MAP) 93/57 (69) Pulse Ox 97 O2 Delivery Room Air Capillary Refill : Height, Weight, BMI Height: 5'4.00" Weight: 130lbs. oz. 58.267701jj; 18.53 BMI Method:Stated General Appearance: No Apparent Distress, Chronically ill Eyes: Bilateral Eye Normal Inspection, Bilateral Eye PERRL, Bilateral Eye EOMI, Bilateral Eye Conjunctivae Pale Respiratory: Lungs Clear, Normal Breath Sounds, No Accessory Muscle Use, No Respiratory Distress Cardiovascular: Regular Rate, Rhythm, Systolic Murmur Gastrointestinal: Soft, Tenderness (Mild tenderness diffusely) Extremity: Normal Range of Motion Neurologic/Psychiatric: Alert, Oriented x3 Skin: Warm/Dry, Pallor Progress/Results/Core Measures Suspected Sepsis SIRS Temperature: Pulse: Respiratory Rate: Blood Pressure / Mean: Results/Orders My Orders Orders - JAMAR GREGORIO MD Ondansetron Injection (Zofran Injectio (07/03/22 05:30) Ns Iv 500 Ml (Sodium Chloride 0.9%) (07/03/22 05:25) Medications Given in ED Current Medications Medications Dose Ordered Sig/Fred Route Start Time Stop Time Status Last Admin Dose Admin Ondansetron HCl 8 mg ONCE ONCE IVP 07/03/22 05:30 07/03/22 05:31 DC 07/03/22 05:42 8 MG Vital Signs/I&O 07/03/22 07/03/22 05:10 05:10 Pulse 94 Resp 16 B/P (MAP) 93/57 (69) Pulse Ox 97 O2 Delivery Room Air Room Air Capillary Refill : Departure Impression Primary Impression: Nausea & vomiting Qualified Codes: R11.2 - Nausea with vomiting, unspecified Additional Impressions: Lymphoma Qualified Codes: C85.90 - Non-Hodgkin lymphoma, unspecified, unspecified site Encounter for end of life care Disposition: 01 HOME, SELF-CARE Condition: Stable Departure-Patient Inst. Decision time for Depature: 05:30 Referrals: BINA BACK DO (PCP/Family) Primary Care Physician Patient Instructions: Palliative Care Add. Discharge Instructions: The Hospice nurse will meet you at home this morning. You can and should take your medications for nausea to keep yourself comfortable. Be sure and reach out to your oncologist, Dr Maharaj to let him know you are withdrawing care. Copy Copies To 1: BINA BACK DO Copies To 2: RAMON MAHARAJ KATHRYN M MD Jul 03, 2022 05:31
[2022-07-03 06:40] VITALS: BP 78/49
== END 2022-07-03 06:41 | disposition home or self-care (01) ==
LOC: EDUNIT# 04:56 → ER 04:59
DX: R11.2 Nausea with vomiting, unspecified (principal); C85.90 Non-Hodgkin lymphoma, unspecified, unspecified site; Z51.5 Encounter for palliative care
CPT/HCPCS: 99281

== ENCOUNTER 2022-07-05 08:46 | Inpatient (IN) | payer MEDICARE ==
[~2022-07-05] VITALS: Ht 167 cm; Wt 46.9 kg
--- NOTE | 2022-07-05 09:45 | ED General ---
General Chief Complaint: General Problems/Pain Stated Complaint: UNRESPONSIVE Nursing Triage Note: PT TO RM 8 BY WC WITH COMPLAINT OF NOT WANTING TO EAT OR DRINK, UNABLE TO TAKE MEDICATION. PT IS ON HOSPICE FOR CANCER, FAMILY STATES PT WAS UNABLE TO TAKE PAIN MEDICATION LAST NIGHT AND IS CONCERNED SHE HAS TAKEN A TURN FOR THE WORSE. STATES DID NOT CALL HOSPICE NURSE PRIOR TO COMING. PT HAS EYES OPEN, BUT IS NOT RESPONDING. Source of Information: Family Exam Limitations: Other History of Present Illness Date Seen by Provider: Jul 05, 2022 Time Seen by Provider: 09:44 Initial Comments This 81-year-old woman is brought to the emergency room with a general rapid decline since receiving a terminal prognosis for her cancer. Initially it was reported that she was enrolled in hospice. However, after discussing with Ashia it was discovered that an inquiry was made but she never officially enrolled in hospice. Family was concerned that patient was not able to take her medications due to to altered mental status and a decreasing responsiveness. She does not appear in any distress or pain at this time. She is unresponsive to this examiner. Respiration rate is slow. Patient is hypotensive. After discussing options with her son, he request that she be admitted for comfort care rather than trying to return home on hospice. Allergies and Home Medications Allergies Coded Allergies: No Known Drug Allergies (Unverified , 06/21/18) Patient Home Medication List Home Medication List Reviewed: Yes Aspirin (Aspirin) 81 Mg Tab.chew, 81 MG PO DAILY, (Reported) Entered as Reported by: YANIQUE REECE on 02/14/21 1112 Cholestyramine (with Sugar) (Cholestyramine Packet) 4 Gm Powd.pack, 4 GM PO DAILY, (Reported) Entered as Reported by: YANIQUE REECE on 02/14/21 1020 Docusate Sodium (Colace) 100 Mg Capsule, 100 MG PO BID Prescribed by: ERIC PENALOZA on 02/17/21 1007 Hydrocodone/Acetaminophen (Hydrocodone-Acetamin 5-325 mg) 1 Each Tablet, 1 EACH PO Q4H PRN for PAIN-MODERATE (5-7) Prescribed by: ERIC PENALOZA on 02/17/21 1007 Levothyroxine Sodium (Levothyroxine) 75 Mcg Capsule, 75 MCG PO DAILY, (Reported) Entered as Reported by: YANIQUE REECE on 02/14/21 1020 Loperamide HCl (Imodium A-D) 2 Mg Capsule, 2 MG PO 5XD PRN for DIARRHEA, (Reported) Entered as Reported by: YANIQUE REECE on 02/17/21 0833 Multivitamin (Multivitamin) 1 Each Tablet, 1 EACH PO DAILY, (Reported) Entered as Reported by: YANIQUE REECE on 02/14/21 1112 Triamcinolone Acet (Triamcinolone Acetonide 0.1% Cream) 15 Gm Cr, 15 GM TP BID, (Reported) Entered as Reported by: YANIQUE REECE on 02/14/21 1021 Review of Systems Review of Systems Constitutional: see HPI EENTM: no symptoms reported Respiratory: see HPI Cardiovascular: see HPI Gastrointestinal: no symptoms reported Genitourinary: no symptoms reported : No Musculoskeletal: no symptoms reported Psychiatric/Neurological: See HPI Hematologic/Lymphatic: See HPI Immunological/Allergic: no symptoms reported Past Wcdnkxd-Nnnexr-Opaddz Hx Patient Social History Tobacco Use?: No Substance use?: Unable to obtain Alcohol Use?: Unable to obtain Pt feels they are or have been: Unable to obtain Immunizations Up To Date First/Initial COVID19 Vaccinat: MAY 2020 Second COVID19 Vaccination Nikhil: JUNE 2020 Third COVID19 Vaccination Date: MAY 2020 Seasonal Allergies Seasonal Allergies: No Past Medical History Surgeries: Yes (RIGHT ANKLE SURGERY, LEFT ARMPIT LYMPH NODE) Adenoidectomy, 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, Orthopedic, Tonsillectomy Respiratory: No Currently Using CPAP: No Currently Using BIPAP: No Cardiac: No Neurological: Yes (RIGHT LEG (FROM CANCER TREATMENTS)) Neuropathy APPLICATION SUPPORT LEAD History: 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 Genitourinary: No Gastrointestinal: Yes Chronic Diarrhea Musculoskeletal: Yes Arthritis Endocrine: Yes Hypothyroidsim HEENT: Yes (WEARS GLASSES) Loss of Vision: Denies Hearing Impairment: Denies Cancer: Yes (NON-HODGKINS LYMPHOMA) Lymphoma What Type of Treatment Did You: Chemotherapy, Radiation Psychosocial: No Integumentary: No Blood Disorders: Yes (ANEMIA) Adverse Reaction/Blood Tranf: No (N/A) Physical Exam Vital Signs Vital Signs - First Documented 07/05/22 07/05/22 08:47 11:36 Temp 36.8 Pulse 110 Resp 15 B/P (MAP) 74/47 (56) Pulse Ox 97 O2 Delivery Room Air O2 Flow Rate 2.00 Capillary Refill : Less Than 3 Seconds Height, Weight, BMI Height: 5'4.00" Weight: 130lbs. oz. 58.000769ve; 18.00 BMI Method:Stated General Appearance: No Apparent Distress, WD/WN, Other (Unresponsive) HEENT: Normal ENT Inspection Neck: Normal Inspection Respiratory: Lungs Clear, Normal Breath Sounds, Other (Slow respiratory rate) Cardiovascular: No Edema, Tachycardia Gastrointestinal: Non Tender, Soft Extremity: Normal Inspection Neurologic/Psychiatric: Other (Unresponsive) Skin: Normal Color, Warm/Dry Progress/Results/Core Measures Suspected Sepsis SIRS Temperature: Pulse: 110 Respiratory Rate: 15 Blood Pressure 74 /47 Mean: 56 Results/Orders Vital Signs/I&O 07/05/22 07/05/22 08:47 11:36 Temp 36.8 Pulse 110 101 Resp 15 7 B/P (MAP) 74/47 (56) 70/46 Pulse Ox 97 98 O2 Delivery Room Air Nasal Cannula O2 Flow Rate 2.00 Capillary Refill : Less Than 3 Seconds Blood Pressure Mean: 56 Progress Note : Progress Note Patient was admitted as an observation patient to Dr. MULLEN. Comfort care order set was employed. Departure Communication (Admissions) Time/Spoke to Admitting Phy: 10:13 Dr. Mullen Impression Primary Impression: Need for comfort care Additional Impressions: Non Hodgkin's lymphoma Qualified Codes: C85.90 - Non-Hodgkin lymphoma, unspecified, unspecified site Unresponsive Disposition: ADMITTED INPATIENT Condition: Unchanged Admissions Decision to Admit Reason: Admit from ER (General) Decision to Admit/Date: Jul 05, 2022 Time/Decision to Admit Time: 10:23 Departure-Patient Inst. Referrals: BINA MULLEN DO (PCP/Family) Primary Care Physician Copy Copies To 1: BINA MULLEN DO Copies To 2: RAMON PATEL JOSHUA T MD Jul 05, 2022 09:45
[2022-07-05 11:36] VITALS: BP 70/46
[2022-07-05] MEDS ORDERED: RT-ALBUTEROL/IPRATROPIUM 3 ML (DUONEB) VIAL INH PRN (12:15)
[2022-07-05] MEDS ORDERED: PROMETHAZINE INJ 25 MG/ML (PHENERGAN) AMP IVP PRN (12:15)
[2022-07-05] MEDS ORDERED: GLYCOPYRROLATE 0.2 MG/ML (ROBINUL) 2 ML VIAL IV PRN (12:15)
[2022-07-05] MEDS ORDERED: morphine INJ 4 MG/ML 1 ML (VIAL/SYRINGE) IV PRN (12:15)
[2022-07-05] MEDS ORDERED: ACETAMINOPHEN 650 MG SUPP (TYLENOL) PR PRN (12:15)
[2022-07-05] MEDS ORDERED: CATHETER FLUSH 10 ML SYR IVP PRN (12:15)
[2022-07-05] MEDS ORDERED: BISACODYL 10 MG SUPP (DULCOLAX) PR PRN (12:15)
[2022-07-05] MEDS ORDERED: LORazepam INJ 2 MG/ML (ATIVAN) VIAL IVP PRN (12:15)
[2022-07-05] MEDS ORDERED: SALIVA SUBSTITUTE 60 ML SPRAY(MOUTHKOTE) MM PRN (12:15)
[2022-07-05] MEDS ORDERED: ONDANSETRON 4 MG/2 ML (SDV) Z0FRAN IVP PRN (12:15)
[2022-07-05] MEDS ORDERED: LORazepam ORAL CONCENTRATE 2 MG/ML 30 ML (ATIVAN) PO PRN (12:15)
[2022-07-05] MEDS ORDERED: ARTIFICAL TEARS 0.4 ML UNIT DOSE (REFRESH PLUS) OU PRN (12:15)
[2022-07-05] MEDS ORDERED: ATROPINE 1% OPHTHALMIC SOLN 2 ML SL PRN (12:15)
[2022-07-05] MEDS: SCOPOLAMINE 1.5 MG (TRANSDERM-SCOP) PATCH TOP SCH (16:28)
[2022-07-05] MEDS: CATHETER FLUSH 10 ML SYR IVP SCH ×2 (16:28→21:51)
[2022-07-06] MEDS: CATHETER FLUSH 10 ML SYR IVP SCH ×3 (06:28→21:53)
--- NOTE | 2022-07-06 18:55 | History & Physical ---
History of Present Illness History of Present Illness Reason for visit/HPI This is an 81 year old female with a recurrence of non-hodkin's lymphoma who was found unresponsive by her family. She has apparently been declining the past 2 weeks to the point that hospice was consulted but she had not started services. She has had a rapid decline in the past 2 days and was not able to eat or drink or take her pills. In the emergency room she was unresponsive with hypotension but appeared in no acute pain or distress. The family opted for admission for comfort care. Date of Admission Jul 05, 2022 at 11:36 Date Seen by a Provider: Jul 05, 2022 Time Seen by a Provider: 19:30 I consulted on this patient on 07/06/22 18:50 Attending Physician Bina Back DO Admitting Physician Admitting Physician: Bina Back DO Attending Physician: Bina Back DO Consult Allergies and Home Medications Allergies Coded Allergies: No Known Drug Allergies (Unverified , 06/21/18) Patient Home Medication List Home Medication List Reviewed: Yes Aspirin (Aspirin) 81 Mg Tab.chew, 81 MG PO DAILY, (Reported) Entered as Reported by: YANIQUE REECE on 02/14/21 1112 Cholestyramine (with Sugar) (Cholestyramine Packet) 4 Gm Powd.pack, 4 GM PO DAILY, (Reported) Entered as Reported by: YANIQUE REECE on 02/14/21 1020 Docusate Sodium (Colace) 100 Mg Capsule, 100 MG PO BID Prescribed by: ERIC PENALOZA on 02/17/21 1007 Hydrocodone/Acetaminophen (Hydrocodone-Acetamin 5-325 mg) 1 Each Tablet, 1 EACH PO Q4H PRN for PAIN-MODERATE (5-7) Prescribed by: ERIC PENALOZA on 02/17/21 1007 Levothyroxine Sodium (Levothyroxine) 75 Mcg Capsule, 75 MCG PO DAILY, (Reported) Entered as Reported by: YANIQUE REECE on 02/14/21 1020 Loperamide HCl (Imodium A-D) 2 Mg Capsule, 2 MG PO 5XD PRN for DIARRHEA, (Reported) Entered as Reported by: YANIQUE REECE on 02/17/21 0833 Multivitamin (Multivitamin) 1 Each Tablet, 1 EACH PO DAILY, (Reported) Entered as Reported by: YANIQUE REECE on 02/14/21 1112 Triamcinolone Acet (Triamcinolone Acetonide 0.1% Cream) 15 Gm Cr, 15 GM TP BID, (Reported) Entered as Reported by: YANIQUE REECE on 02/14/21 1021 Past Zjkncby-Fcodho-Lrvzov Hx Patient Social History Tobacco Use?: No Use of E-Cig and/or Vaping dev: No Substance use?: No Alcohol Use?: No Pt feels they are or have been: No Immunizations Up To Date Date of Influenza Vaccine: May 06, 2022 First/Initial COVID19 Vaccinat: MAY 2020 Second COVID19 Vaccination Nikhil: JUNE 2020 Tetanus Booster (TDap): Unknown Hepatitis A: No Hepatitis B: No Seasonal Allergies Seasonal Allergies: No Current Status status: No status: No Advance Directives: Yes Advance Directive Location: Family to bring in copy Communicates: Verbally Primary Language: Somali Preferred Spoken Language: Somali Sensory deficits: Vision impairment Implanted or Applied Medical D: 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 Past Medical History Surgeries: Adenoidectomy, 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, Orthopedic, Tonsillectomy Currently Using CPAP: No Currently Using BIPAP: No Neuropathy [employer] History: 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 Chronic Diarrhea Arthritis Hypothyroidsim Loss of Vision: Denies Hearing Impairment: Denies Lymphoma What Type of Treatment Did You: Chemotherapy, Radiation Blood Disorders: Yes (ANEMIA) Adverse Reaction/Blood Tranf: No (N/A) Review of Systems Constitutional: weakness, weight loss EENTM: No see HPI, No no symptoms reported, No ear discharge, No hearing loss, No ear pain, No blurred vision, No double vision, No eye pain, No tearing, No vision loss, No dental problems, No hoarseness, No mouth pain, No mouth swelling, No epistaxis, No nose congestion, No nose pain, No throat pain, No throat swelling, No other Respiratory: No no symptoms reported, No see HPI, No cough, No dyspnea on exertion, No hemoptysis, No orthopnea, No phlegm, No short of breath, No stridor, No wheezing, No other Cardiovascular: No no symptoms reported, No see HPI, No chest pain, No edema, No Hx of Intervention, No palpitations, No syncope, No vascular heart diseas, No other Gastrointestinal: loss of appetite Genitourinary: decreased output Musculoskeletal: muscle weakness Skin: No no symptoms reported, No see HPI, No change in color, No change in hair/nails, No dryness, No hx of skin cancer, No lesions, No lumps, No pruritus, No rash, No other Psychiatric/Neurological: Other (unresponsive) Physical Exam Vital Signs Vital Signs - First Documented 07/05/22 07/05/22 08:47 11:36 Temp 36.8 Pulse 110 Resp 15 B/P (MAP) 74/47 (56) Pulse Ox 97 O2 Delivery Room Air O2 Flow Rate 2.00 Capillary Refill : Less Than 3 Seconds Height, Weight, BMI Height: 5'4.00" Weight: 130lbs. oz. [id number]; 16.81 BMI Method:Stated General Appearance: Other (unresponsive) HEENT: Other (dry/mouth breathing) Respiratory: Lungs Clear, Respiratory Distress (some apnea pauses) Cardiovascular: Regular Rate, Rhythm, Gallop/S4 Gastrointestinal: Normal Bowel Sounds, Soft Back: No CVA Tenderness Neurologic/Psychiatric: Other (unresponsive) Skin: Warm/Dry (no mottling) Assessment/Plan Assessment and Plan 1. End Stage Non-Hodkins Lymphoma/Unresponsive/Hypotensive/Apneic--admit for comfort care Admission Diagnosis Admission Status: Observation BINA BACK DO Jul 06, 2022 18:55
--- NOTE | 2022-07-06 19:01 | Progress Note ---
Subjective Date Seen by a Provider: Jul 06, 2022 Time Seen by a Provider: 08:40 Subjective/Events-last exam Fwup end stage non-hodkin's lymphoma, unresponsive, hypotension, apnea. Has still not had any urine output. Still has not required any medications for pain or agitation. Has eyes open this morning but still nonverbal. Not as much apnea this morning. Objective Exam Vital Signs Date Time Temp Pulse Resp B/P (MAP) Pulse Ox O2 Delivery O2 Flow Rate FiO2 07/06/22 08:20 Nasal Cannula 2.00 07/06/22 08:00 Nasal Cannula 2.00 07/05/22 20:34 Nasal Cannula 2.00 07/05/22 20:20 Nasal Cannula 2.00 I & O 07/06/22 07:00 Intake Total 0 ml Output Total 0 ml Balance 0 ml Capillary Refill : Less Than 3 Seconds General Appearance: No Apparent Distress Respiratory: Lungs Clear Cardiovascular: Regular Rate, Rhythm, Gallop/S4 Gastrointestinal: normal bowel sounds, soft Neurologic/Psychiatric: Other (eyes open but unresponsive) Skin: Warm/Dry (no mottling noted) Assessment/Plan Assessment/Plan Assess & Plan/Chief Complaint 1. End Stage Non-Hodkins Lymphoma/Unresponsive/Hypotensive/Apneic--comfort care Clinical Quality Measures Admission Status Admission Dx 1. End Stage Non-Hodkins Lymphoma/Unresponsive/Hypotensive/Apneic--admit for comfort care BINA BACK DO Jul 06, 2022 19:01
[2022-07-07] MEDS: CATHETER FLUSH 10 ML SYR IVP SCH ×3 (06:01→22:00)
--- NOTE | 2022-07-07 10:19 | Progress Note ---
Subjective Date Seen by a Provider: Jul 07, 2022 Time Seen by a Provider: 10:16 Subjective/Events-last exam Fwup end stage non-hodkin's lymphoma, unresponsive, hypotension, apnea. Still no oral intake, minimal urine output--does open eyes to voice. Resting comfortably with family in room. Objective Exam Vital Signs Date Time Temp Pulse Resp B/P (MAP) Pulse Ox O2 Delivery O2 Flow Rate FiO2 07/07/22 08:32 Nasal Cannula 2.00 07/06/22 19:33 Nasal Cannula 2.00 07/06/22 19:30 Nasal Cannula 2.00 I & O 07/07/22 07:00 Intake Total 0 ml Output Total 250 ml Balance -250 ml Capillary Refill : Less Than 3 Seconds General Appearance: No Apparent Distress Respiratory: Lungs Clear Cardiovascular: Tachycardia Gastrointestinal: normal bowel sounds Neurologic/Psychiatric: Other (nonverbal--will open eyes at times) Skin: Warm/Dry (mild discoloration around ankles but no obvious mottling yet) Assessment/Plan Assessment/Plan Assess & Plan/Chief Complaint 1. End Stage Non-Hodkins Lymphoma/Unresponsive/Hypotensive/Apneic--comfort care, family coming in town this weekend, suspect she will pass sometime this weekend Clinical Quality Measures Admission Status Admission Dx 1. End Stage Non-Hodkins Lymphoma/Unresponsive/Hypotensive/Apneic--admit for comfort care BINA BACK DO Jul 07, 2022 10:19
[2022-07-08] MEDS: CATHETER FLUSH 10 ML SYR IVP SCH ×3 (05:58→22:00)
--- NOTE | 2022-07-08 11:41 | Progress Note - Hospitalist ---
Subjective Subjective/Events-last exam Pt resting comfortably. Does not respond. 3 family members at bedside. State today is her 82st birthday and she had told them previously she just wanted to make it to 82. Objective Exam Vital Signs Vital Signs Date Time Temp Pulse Resp B/P (MAP) Pulse Ox O2 Delivery O2 Flow Rate FiO2 07/08/22 08:09 Nasal Cannula 2.00 07/05/22 11:36 101 7 70/46 98 07/05/22 08:47 36.8 Capillary Refill : Less Than 3 Seconds General Appearance: No Apparent Distress, Other (resting comfortably, unlabored breathing, appears comfortable) Results/Procedures Lab Patient resulted labs reviewed. Assessment/Plan Assessment and Plan Assess & Plan/Chief Complaint 1. End Stage Non-Hodkins Lymphoma/Unresponsive/Hypotensive/Apneic--comfort care measures only, continues to progress through dying process, symptoms well controlled MI BELL MD Jul 08, 2022 11:41
[2022-07-08] MEDS: SCOPOLAMINE 1.5 MG (TRANSDERM-SCOP) PATCH TOP SCH (12:23)
[2022-07-08] MEDS ORDERED: SCOPOLAMINE PATCH REMOVAL TP SCH (12:29)
[2022-07-09] MEDS: CATHETER FLUSH 10 ML SYR IVP SCH ×2 (06:00→14:26)
--- NOTE | 2022-07-09 11:00 | Progress Note - Hospitalist ---
Subjective Subjective/Events-last exam Pt sleeping soundly.They had a cake brought in for her birthday yesterday. Slightly more tachypneic but daughter declines need for medications at this time. Objective Exam Vital Signs Vital Signs Date Time Temp Pulse Resp B/P (MAP) Pulse Ox O2 Delivery O2 Flow Rate FiO2 07/09/22 08:00 Nasal Cannula 2.00 07/05/22 11:36 101 7 70/46 98 07/05/22 08:47 36.8 Capillary Refill : Less Than 3 Seconds General Appearance: No Apparent Distress, Thin Respiratory: Lungs Clear, No Accessory Muscle Use Cardiovascular: Regular Rate, Rhythm Results/Procedures Lab Patient resulted labs reviewed. Assessment/Plan Assessment and Plan Assess & Plan/Chief Complaint 1. End Stage Non-Hodkins Lymphoma/Unresponsive/Hypotensive/Apneic--comfort care measures only, continues to progress through dying process, symptoms well controlled- prn medications available and daughter aware to request if they felt she needed them MI BELL MD Jul 09, 2022 11:00
== END 2022-07-09 13:32 | disposition expired | DRG 951 ==
LOC: EDUNIT# 08:46 → ER 08:49 → 4TH 11:36 → OBSVTOIN 11:50
PROVIDERS: ADMIT Family Medicine; ATTEND Family Medicine
DX: Z51.5 Encounter for palliative care (principal); C85.90 Non-Hodgkin lymphoma, unspecified, unspecified site; I95.9 Hypotension, unspecified; R06.81 Apnea, not elsewhere classified; G62.9 Polyneuropathy, unspecified; Z66 Do not resuscitate; K52.9 Noninfective gastroenteritis and colitis, unspecified; E03.9 Hypothyroidism, unspecified; M19.90 Unspecified osteoarthritis, unspecified site; Z79.890 Hormone replacement therapy; Z79.82 Long term (current) use of aspirin
CPT/HCPCS: 99281; G0378